=== PATIENT | female | born 1965 | race Caucasian/White ===

== ENCOUNTER → 2018-12-23 | Outpatient (CLI) | payer OTHER ==
[~2018-12-23] MED LIST: CONRAY-43 43% 50ML VIAL (Q9960) As Ordered ONE; EXCETAB PO; PROHANCE 279.3MG/ML 5ML VIAL (A9576) As Ordered ONE; VICO5TAB PO
--- NOTE | 2018-12-23 14:50 | REP ---
MR ARTHROGRAM OF THE LEFT SHOULDER: TECHNIQUE: Axial T2 fat sat, coronal oblique T1, T2 fat sat, post arthrogram axial T1 fat sat, proton density, coronal oblique T1 fat sat, T2 sat, sagittal oblique T2 fat sat, ABER T1 fat sat. There is a full-thickness partial tear of the anterior supraspinatus tendon, with moderate tendinopathy more posteriorly within the tendon. No other rotator cuff tendon tear is seen. There are mild hypertrophic degenerative changes of the AC joint with mild downward sloping of the acromion, which is type 2. Biceps tendon is within the bicipital groove with no tenosynovitis. There is no Hill-Sachs deformity. There is no abnormal signal in the deltoid muscle. Biceps labral complex is intact. There is no evidence of a labral tear. There is no bone marrow edema or occult fracture. No paralabral cyst is seen. There is mild fluid scattered throughout the subacromial/subdeltoid bursae. IMPRESSION: Full-thickness partial tear, anterior supraspinatus tendon with moderate tendinopathy of the posterior tendon. No other evidence of rotator cuff tear or labral tear. Mild hypertrophic degenerative changes acromioclavicular joint with downward sloping of the acromion, which is type 2. There is mild fluid in the subacromial/subdeltoid bursae. Electronically Signed by Tito Ramsey MD 12/24/2018 10:17 A
--- NOTE | 2018-12-24 10:11 | REP ---
Procedure: Left shoulder arthrogram The procedure was performed under the direct supervision of Dr. Ramsey. History: Left shoulder pain The benefits and risks including but not limited to pain, infection, bleeding and anaphylaxis were explained to the patient and informed consent was obtained. Technique: The left glenohumeral joint space was localized using fluoroscopic guidance. The skin was prepped and draped in a sterile fashion. 1% lidocaine was used as a local anesthetic. Using fluoroscopic guidance a 22 gauge spinal needle was inserted and advanced into the joint. 0.5 ml of Conray 43 was injected to verify placement. 11 ml of a solution containing 20 ml of sterile saline and 0.15 ml of ProHance was injected into the joint. The needle was removed and the patient was taken to MRI for postprocedural imaging. The patient tolerated the procedure well and there were no immediate complications. Less than 6 seconds of fluoro time was utilized for this procedure. Reviewed by ZAKIYA Echeverria 12/23/2018 04:34 P Electronically Signed by Tito Ramsey MD 12/24/2018 10:00 A
== END ==
LOC: M RADPRO 06:46
PROVIDERS: ATTEND Nurse Practitioner Family
DX: S46.012A Strain of muscle(s) and tendon(s) of the rotator cuff of left shoulder, initial encounter (principal); G31.9 Degenerative disease of nervous system, unspecified; Y92.89 Other specified places as the place of occurrence of the external cause; Y93.89 Activity, other specified; X58.XXXA Exposure to other specified factors, initial encounter; Y99.8 Other external cause status
CPT/HCPCS: 23350; 73223; 77002; A9576; Q9960

== ENCOUNTER → 2019-05-16 | Outpatient (CLI) | payer OTHER ==
[~2019-05-16] MED LIST changes: -CONRAY-43 43% 50ML VIAL (Q9960) As Ordered ONE; -PROHANCE 279.3MG/ML 5ML VIAL (A9576) As Ordered ONE
--- NOTE | 2019-05-21 07:56 | SLEEPHOME ---
DATE OF PROCEDURE: 05/16/2019 ORDERED BY: LINDA Peña Diagnostic home sleep testing was performed due to concern for the obstructive sleep apnea syndrome. For testing, a nocturnal T3 respiratory monitoring device was used. Continuous record was made of pulse, oxygen saturation, airflow, chest and abdominal strain and body position. 9 hours and 59 minutes of data were reviewed. There 7 hours and 38 minutes marked as time in bed. During the interval marked time in bed, there were 104 respiratory events identified of 10 seconds in duration or greater for a respiratory event index of 13.6. The events were primarily obstructive. Pulse rate and saturation data were unable to be recorded as the monitors became dislodged early in the study. Testing was performed in both the supine and nonsupine positions. IMPRESSION: Abnormal home sleep testing with repetitive respiratory events and a respiratory event index of 13.6 is consistent with the obstructive sleep apnea syndrome. RECOMMENDATION: The patient should be encouraged to undergo formal sleep evaluation.
== END ==
LOC: M SLEEP HO 10:09
PROVIDERS: ATTEND Nurse Practitioner Family
DX: R06.83 Snoring (principal)

== ENCOUNTER → 2020-10-08 | Outpatient (CLI) | payer OTHER ==
--- NOTE | 2020-10-08 19:52 | REPVR ---
PROCEDURE INFORMATION: Exam: MR Head Without Contrast Exam date and time: 10/08/2020 6:27 PM Age: 55 years old Clinical indication: Pain; Headache; Migraine; Without aura; Does respond to medication; Severity not specified; Additional info: Cervicalgia, chronic migraine w/o aura, not intract TECHNIQUE: Imaging protocol: MR of the head without contrast. COMPARISON: No relevant prior studies available. FINDINGS: Brain: There is no acute infarct. No acute intracranial hemorrhage is seen. No mass, mass effect, midline shift, or herniation is noted. The cortical gyration pattern, basal ganglia, thalami, brainstem, and cerebellum are normal in appearance. Cerebral ventricles: Normal. No hydrocephalus. Bones/joints: Unremarkable. Paranasal sinuses: There is mild mucosal thickening in the ethmoid sinuses. No air-fluid levels are noted in the sinuses. Mastoid air cells: The mastoid air cells are well aerated. Orbits: The globes and orbits are unremarkable. Soft tissues: Unremarkable. IMPRESSION: Normal MRI brain without contrast. Electronically signed by: Wes Davenport On 10/08/2020 19:52:50 PM
--- NOTE | 2020-10-08 20:01 | REPVR ---
PROCEDURE INFORMATION: Exam: MR Cervical Spine Without Contrast Exam date and time: 10/08/2020 6:27 PM Age: 55 years old Clinical indication: Pain; Cervicalgia; Additional info: Cervicalgia, chronic migraine w/o aura, not intract TECHNIQUE: Imaging protocol: Multiplanar magnetic resonance images of the cervical spine without contrast. COMPARISON: No relevant prior studies available. FINDINGS: Vertebrae: There is straightening of the normal cervical lordosis. There is no fracture or subluxation. The heights of the vertebral bodies are preserved. The bone marrow signal is normal. Spinal cord: Normal. No cord compression. No spinal cord edema or hemorrhage. Spinal epidural space: No abnormal epidural fluid collection. C2-C3: The disc height is preserved. There is disc desiccation. No disc herniation, spinal canal stenosis, or neural foraminal stenosis is noted. The facet joints are unremarkable. C3-C4: The disc height is preserved. There is disc desiccation. There is a mild central protrusion. No spinal canal stenosis or neural foraminal stenosis is noted. The facet joints are unremarkable. C4-C5: The disc height is preserved. There is disc desiccation. There is a mild broad-based posterior protrusion and fissuring of the posterior central portion of the annulus fibrosus. No spinal canal stenosis or neural foraminal stenosis is noted. The facet joints are unremarkable. C5-C6: There is mild loss of disc height, disc desiccation, a mild broad-based posterior protrusion, and endplate spurs projecting anteriorly. No spinal canal stenosis or neural foraminal stenosis is noted. The facet joints are unremarkable. C6-C7: There is mild loss of disc height, disc desiccation, a mild broad-based posterior disc osteophyte complex, left uncovertebral hypertrophy, and endplate spurs projecting anteriorly. There is mild spinal canal stenosis and moderate left neural foraminal stenosis. No right neural foraminal stenosis is noted. The facet joints are unremarkable. C7-T1: The disc height is preserved. 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 No spinal canal or neural foraminal stenosis is noted. T1-T2: Axial imaging was not performed at this level. The disc height is preserved. No disc herniation, spinal canal stenosis, or neural foraminal stenosis is noted. The facet joints are unremarkable. T2-T3: Axial imaging was not performed at this level. The disc height is preserved. No disc herniation, spinal canal stenosis, or neural foraminal stenosis is noted. The facet joints are unremarkable. Vertebral arteries: There are expected flow voids in the vertebral arteries. Soft tissues: Unremarkable. No ligamentous sprain or muscular strain. No paraspinal soft tissue fluid collection. IMPRESSION: 1. C3-C4: Mild central protrusion. 2. C4-C5: Mild broad-based posterior protrusion and fissuring of the posterior central portion of the annulus fibrosus. 3. C5-C6: Mild loss of disc height, a mild broad-based posterior protrusion, and endplate spurs projecting anteriorly. 4. C6-C7: Mild spinal canal stenosis and moderate left neural foraminal stenosis, where there is mild loss of disc height, a mild broad-based posterior disc osteophyte complex, left uncovertebral hypertrophy, and endplate spurs projecting anteriorly. 5. 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 Electronically signed by: Wes Davenport On 10/08/2020 20:01:12 PM
== END ==
LOC: M RAD 16:09
PROVIDERS: ATTEND Nurse Practitioner Family
DX: M54.2 Cervicalgia (principal); G43.709 Chronic migraine without aura, not intractable, without status migrainosus

== ENCOUNTER → 2024-06-19 | Outpatient (CLI) | payer OTHER ==
[~2024-06-19] MED LIST changes: +GALZ25CA PO; +GING500C2 PO; +GNP250TA9 PO; +MAG100TA PO; +ONDA-282 PO; +PANT40TA29 PO; +SUCR1TA PO; +SUMA100T2 PO; +TRAM1CAP15 PO; +VITA1CHW3 PO; +VITA25TA3 PO
== END ==
LOC: M RAD 08:00
PROVIDERS: ATTEND Specialist
DX: D72.819 Decreased white blood cell count, unspecified (principal); M06.9 Rheumatoid arthritis, unspecified